=== PATIENT | male | born 2000 | race Caucasian/White ===

== ENCOUNTER 2023-04-27 23:59 | Emergency (ER) | payer MEDICAID ==
[~2023-04-27] VITALS: Ht 188 cm; Wt 136.1 kg
[2023-04-28 00:30] VITALS: BP_SYST 132; PULSE 76; RESP 18; TEMP 97; O2SAT 97
[2023-04-28] MEDS ORDERED: MORPHINE 4 MG INJ. 4 MG/ML VIAL IM ONE (00:45)
[2023-04-28] MEDS ORDERED: KETOROLAC TROMETHAMINE 60 MG/2 ML VIAL IM ONE (00:45)
[2023-04-28] MEDS ORDERED: NAPR-1172 PO (01:58)
[2023-04-28 02:02] VITALS: BP_SYST 132; PULSE 76; RESP 18; TEMP 97; O2SAT 97
== END 2023-04-28 02:02 | disposition home or self-care (01) ==
LOC: SED 23:59
DX: M54.31 Sciatica, right side (principal); M79.604 Pain in right leg; Z79.899 Other long term (current) drug therapy
CPT/HCPCS: 99284; 96372; J1885; J2270